=== PATIENT | male | born 1960 | race Caucasian/White ===

== ENCOUNTER 2017-12-26 16:16 | Emergency (ER) | payer BC, OTHER ==
[2017-12-26 16:39] VITALS: BP 124/91
--- NOTE | 2017-12-26 17:36 | RAD ---
Indication: Middle finger injury. 3 views of the left middle finger demonstrates no fracture. No radiopaque foreign body is identified although there is a bandage overlying the soft tissues. IMPRESSION: No definite fracture is identified. No foreign body is identified.
[2017-12-26] MEDS ORDERED: Lidocaine 2% EPI 1:200000 MPF* 20 ML VIAL ONE (18:27)
--- NOTE | 2017-12-26 21:41 | ED ---
Laceration/Wound HPI - HPI Summary HPI Summary: Patient presents to the ED with lacerations to the middle and fourth finger from a sand bark grinder, approximately 30 minutes prior to arrival. Bleeding is not well controlled on arrival and pressure dressing applied immediately. He remains in full range of motion and is able to flex and extend at the PIP, DIP and MCP joints without limitations. Endorses a mild amount of pain. Denies any other symptoms, including weakness. Patient is otherwise healthy. Takes no medications including blood thinners. - History of Current Complaint Stated Complaint: LT HAND FINGERS LAC Time Seen by Provider: 12/26/17 16:49 Hx Obtained From: Patient Mechanism of Injury: Sharp/Blunt Trauma Onset/Duration: Sudden Onset Aggravating: Movement Alleviating: Compression Timing: Constant Onset Severity: Mild Current Severity: Mild Pain Intensity: 5 Pain Scale Used: 0-10 Numeric Related Hx: Dominant Hand (Right) - Allergy/Home Medications Allergies/Adverse Reactions: Allergies Allergy/AdvReac Type Severity Reaction Status Date / Time MS Bee Venom [Bee Venom] Allergy Hives Verified 06/08/16 19:42 PMH/Surg Hx/FS Hx/Imm Hx Previously Healthy: Yes - Immunization History Hx Pertussis Vaccination: No Immunizations Up to Date: Unable to Obtain/Confirm Infectious Disease History: No Infectious Disease History: Denies: Traveled Outside the [place] in Last 30 Days - Family History Known Family History: Negative: Cardiac Disease, Hypertension, Diabetes - Social History Occupation: Employed Full-time Lives: With Family Alcohol Use: Weekly Hx Substance Use: No Substance Use Type: Reports: None Hx Tobacco Use: No Smoking Status (MU): Never Smoked Tobacco Review of Systems Constitutional: Negative Negative: Fever, Chills, Fatigue, Skin Diaphoresis Eyes: Negative - [place] Cardiovascular: Negative Negative: Palpitations, Chest Pain Negative: Shortness Of Breath, Cough Negative: Abdominal Pain, Vomiting, Diarrhea, Nausea Genitourinary: Negative Positive: no symptoms reported, see HPI Neurological: Negative All Other Systems Reviewed And Are Negative: Yes Physical Exam Triage Information Reviewed: Yes Vital Signs On Initial Exam: Initial Vitals Temp Pulse Resp BP Pulse Ox 98.5 F 65 18 124/91 97 12/26/17 16:35 12/26/17 16:35 12/26/17 16:35 12/26/17 16:35 12/26/17 16:35 Vital Signs Reviewed: Yes Appearance: Positive: Well-Appearing, Well-Nourished Skin: Positive: Warm, Skin Color Reflects Adequate Perfusion Head/Face: Positive: Normal Head/Face Inspection Eyes: Positive: EOMI, LAUREN, Conjunctiva Clear Neck: Positive: Supple, No Lymphadenopathy Respiratory/Lung Sounds: Positive: Clear to Auscultation, Breath Sounds Present Cardiovascular: Positive: Normal, RRR, Pulses are Symmetrical in both Upper and Lower Extremities - House Musculoskeletal: Positive: Normal, Strength/ROM Intact Neurological: Positive: Sensory/Motor Intact, Alert, Oriented to Person Place, Time, Speech Normal Psychiatric: Positive: Normal, Affect/Mood Appropriate AVPU Assessment: Alert - Really comfortable house, Procedures - Laceration/Wound Repair 1 Location: upper extremity Description: Linear Anesthesia: 1.0% Betadine Prep?: No Laceration/Wound Explored: clean Suture Type: Prolene Number of Sutures: 11 Layer Closure?: No Sterile Dressing Applied?: No Diagnostics - Vital Signs Vital Signs Temp Pulse Resp BP Pulse Ox 12/26/17 16:35 98.5 F 65 18 124/91 97 - Laboratory Lab Statement: Any lab studies that have been ordered have been reviewed, and results considered in the medical decision making process. Laceration Repair Course/Dx - Course Course Of Treatment: During the course of treatment, the patient is evaluated for lacerations to the middle and fourth finger from a sand bark grinder approximately 30 minutes prior to arrival. Bleeding is not well controlled, and patient is given compression dressing immediately on arrival. X-ray obtained of the hand to assess for depth. X-ray shows no fractures or other findings. Cleanse the area well using normal saline. Lidocaine without epi used as digital block for third and fourth finger with good effect. Continues to be a small arterial blood vessel which continues to bleed. 6 sutures to the distal tip of the volar side of the middle finger, 4 sutures to the distal tip of the volar side of the fourth finger placed. Used 5-0 Prolene sutures. Gauze wrapped in Coban dressing applied to the middle finger. He will keep the Coban dressing approximately for one hour. He is given care instructions and will return to the ED for any signs of infection. Tetanus is up-to-date. Patient is okay at this time for discharge. - Differential Dx Differental Diagnoses: Puncture Wound, Suture Removal, Tendon Laceration - Clinical Impression Provider Diagnoses: Laceration Discharge - Discharge Plan Condition: Stable Disposition: HOME Patient Education Materials: Care For Your Stitches (ED), Laceration (ED) Referrals: Jas Parrish MD [Primary Care Provider] - Additional Instructions: Suture removal in 7 days Keep the area covered with gauze 1 day Take off the gauze tomorrow evening, and leave open to air If the area continues to bleed keep the gauze wrapped If you are in a dirty area or working, wrap with gauze and glove Do not soak in water for long periods of time Wash daily If you develop any red streaking up the hand from the wound, return to the ED immediately
--- NOTE | 2017-12-30 09:08 | PN ---
Progress Note - Progress Note Date of Service: 12/26/17 Note: Length of laceration = 1.5cm to the middle left distal fingertip; 1.3cm to the fourth left distal fingertip
== END 2017-12-26 19:01 | disposition home or self-care (01) ==
LOC: ED 16:16
DX: S61.213A Laceration without foreign body of left middle finger without damage to nail, initial encounter (principal); S61.215A Laceration without foreign body of left ring finger without damage to nail, initial encounter; W26.8XXA Contact with other sharp object(s), not elsewhere classified, initial encounter; Y92.9 Unspecified place or not applicable
CPT/HCPCS: 12001; 99282